=== PATIENT | female | born 1955 | race African-American/Black ===

== ENCOUNTER 2018-10-13 10:53 | Day surgery (SDC) | payer OTHER ==
[~2018-10-13 10:53] MED LIST: CEFAZOLIN 1 GM INJ; LACTATED RINGER'S 1,000 ML IV*; SEVOFLURANE 15 MIN
[2018-10-13] MEDS ORDERED: MIDAZOLAM 1 MG/ML 2 ML INJ (11:51)
[2018-10-13] MEDS ORDERED: PROPOFOL 20 ML (11:52)
[2018-10-13] MEDS ORDERED: LIDOCAINE 2% (SDV) 5 ML INJ (11:52)
[2018-10-13] MEDS ORDERED: FENTAnyl 50 MCG/ML VIAL (13:34)
[2018-10-13] MEDS ORDERED: ONDANSETRON 4 MG INJ (13:44)
[2018-10-13] MEDS ORDERED: MEPERIDINE 25 MG INJ IV (14:00)
[2018-10-13] MEDS ORDERED: OXYCODONE/ACETAMINOPHEN (5/325) TAB PO ×2 (14:00)
[2018-10-13] MEDS ORDERED: ALBUTEROL 0.083% (NEB) 2.5 MG/3 ML AMP HHN (14:00)
[2018-10-13] MEDS ORDERED: ONDANSETRON 4 MG INJ IV (14:00)
[2018-10-13] MEDS ORDERED: FENTAnyl 50 MCG/ML VIAL IV ×3 (14:00)
== END 2018-10-13 16:05 | disposition home or self-care (01) ==
LOC: SDS 10:53
DX: N84.2 Polyp of vagina (principal)
CPT/HCPCS: 57135; 88305